=== PATIENT | male | born 1985 | race Caucasian/White ===

== ENCOUNTER 2016-10-02 09:26 | Emergency (ER) | payer OTHER ==
[~2016-10-02] VITALS: Ht 195.6 cm; Wt 120.5 kg
[2016-10-02 09:28] VITALS: BP 173/103; PULSE 64; RESP 19; TEMP 97.6; O2SAT 99
[2016-10-02] MEDS ORDERED: LISI10TA3 PO (09:49)
[2016-10-02] MEDS ORDERED: MORPHINE SULFATE 4 MG/ML INJ IV PUSH ONE (10:00)
[2016-10-02] MEDS ORDERED: ONDANSETRON HCL 4 MG/2 ML VIAL IV PUSH ONE (10:00)
[2016-10-02] MEDS ORDERED: KETOROLAC TROMETHAMINE 30 MG/ML (IVP) VIAL IV PUSH ONE (10:00)
[2016-10-02] MEDS ORDERED: SODIUM CHLOR 0.9% 1000 ML INJ 1,000 ML IV ONE (10:00)
[2016-10-02] MEDS ORDERED: MORPHINE SULFATE 8 MG/ML INJ ONE (10:27)
[2016-10-02 10:29] LABS: AUTOMATED NEUTROPHIL # 3.3 TH/MM3 (1.8-7.7); BASOPHIL # 0.1 TH/MM3 (0-0.2); EOSINOPHIL # 0.1 TH/MM3 (0-0.4); EOSINOPHIL % 2.1 % (0.0-4.0); HEMATOCRIT 43.8 % (39.0-51.0); HEMO FLAGS DIFF FINAL; LYMPH % 26.7 % (9.0-44.0); LYMPHOCYTE # 1.5 TH/MM3 (1.0-4.8); MEAN CELL VOLUME 83.9 FL (80.0-100.0); MEAN CORPUSCULAR HGB CONC 33.4 % (32.0-36.0); MONO % 11.1 % (0.0-8.0); NEUT % 59.1 % (16.0-70.0); PLATELET COUNT 201 TH/MM3 (150-450); RED BLOOD COUNT 5.23 MIL/MM3 (4.50-5.90); RED CELL DISTRIBUTION WIDTH 12.9 % (11.6-17.2); WHITE BLOOD COUNT 5.6 TH/MM3 (4.0-11.0)
--- NOTE | 2016-10-02 10:31 | PD ---
HPI Chief Complaint: Complaint Time Seen by Provider: 09:44 Travel History International Travel<30 days: No Contact w/Intl Traveler<30days: No Traveled to known affect area: No History of Present Illness HPI Patient is a 31 year old male who comes in complaining of left testicular pain that radiates up into his left flank. He says last night he felt like he could not urinate and the pain started this morning. He reports taking 800mg Ibuprofen prior to coming in, which has helped his pain. He has had some nausea , but no vomiting. He says he feels like he needs to urinate, but only dribbles come out each time. He denies any fever or chills. PFSH Past Medical History Heart Rhythm Problems: Yes (SVT) Cardiovascular Problems: Yes (HTN) Hypertension: Yes Tetanus Vaccination: < 5 Years Influenza Vaccination: Yes Past Surgical History Tonsillectomy: Yes Social History Alcohol Use: Yes Tobacco Use: No Substance Use: No Allergies-Medications (Allergen,Severity, Reaction): Coded Allergies: Percocet (Verified Allergy, Intermediate, ITCHING, 10/02/16) Reported Meds & Prescriptions Reported Meds & Active Scripts Active Reported Lisinopril 10 Mg Tab 10 Mg PO DAILY Review of Systems Except as stated in HPI: all other systems reviewed are Neg General / Constitutional: No: Fever, Chills HENT: No: Headaches, Lightheadedness Cardiovascular: No: Chest Pain or Discomfort Respiratory: No: Shortness of Breath Gastrointestinal: Positive: Nausea, Abdominal Pain, No: Vomiting Genitourinary: No: Dysuria, Hematuria, Flank Pain Skin: No Rash, No Change in Pigmentation Neurologic: No: Weakness, Dizziness Physical Exam Narrative GENERAL: Awake and alert, in no acute distress. SKIN: Focused skin assessment warm/dry. HEAD: Atraumatic. Normocephalic. EYES: Pupils equal and round. No scleral icterus. ENT: No nasal bleeding or discharge. Mucous membranes pink and moist. NECK: Trachea midline. No JVD. CARDIOVASCULAR: Regular rate and rhythm. No murmur appreciated. RESPIRATORY: No accessory muscle use. Clear to auscultation. Breath sounds equal bilaterally. GASTROINTESTINAL: Abdomen soft, non-tender, nondistended. Minimal left sided CVA tenderness. : Exam performed in the presence of a nurse. No testicular swelling or masses. Minimal tenderness along the epididymis. No lesions. MUSCULOSKELETAL: No obvious deformities. No clubbing. No cyanosis. No edema. NEUROLOGICAL: Awake and alert. No obvious cranial nerve deficits. Motor grossly within normal limits. Normal speech. PSYCHIATRIC: Appropriate mood and affect; insight and judgment normal. Data Data Last Documented VS Vital Signs Date Time Temp Pulse Resp B/P Pulse Ox O2 Delivery O2 Flow Rate FiO2 10/02/16 09:28 97.6 64 19 173/103 99 Room Air Orders Complete Blood Count With Diff (10/02/16 09:46) Basic Metabolic Panel (Bmp) (10/02/16 09:46) Ct Abd/Pel W/O Iv Contrast (10/02/16 ) Urinalysis - C+S If Indicated (10/02/16 09:46) Iv Access Insert/Monitor (10/02/16 09:46) Sodium Chlor 0.9% 1000 Ml Inj (Ns 1000 M (10/02/16 10:00) Ketorolac Inj (Toradol Inj) (10/02/16 10:00) Ondansetron Inj (Zofran Inj) (10/02/16 10:00) Morphine Inj (Morphine Inj) (10/02/16 10:00) Us Testicles W Doppler (10/02/16 ) Morphine Inj (Morphine Inj) (10/02/16 10:27) Labs Laboratory Tests Test 10/02/16 10/02/16 10:05 11:15 White Blood Count 5.6 TH/MM3 Red Blood Count 5.23 MIL/MM3 Hemoglobin 14.7 GM/DL Hematocrit 43.8 % Mean Corpuscular Volume 83.9 FL Mean Corpuscular Hemoglobin 28.0 PG Mean Corpuscular Hemoglobin 33.4 % Concent Red Cell Distribution Width 12.9 % Platelet Count 201 TH/MM3 Mean Platelet Volume 8.6 FL Neutrophils (%) (Auto) 59.1 % Lymphocytes (%) (Auto) 26.7 % Monocytes (%) (Auto) 11.1 % Eosinophils (%) (Auto) 2.1 % Basophils (%) (Auto) 1.0 % Neutrophils # (Auto) 3.3 TH/MM3 Lymphocytes # (Auto) 1.5 TH/MM3 Monocytes # (Auto) 0.6 TH/MM3 Eosinophils # (Auto) 0.1 TH/MM3 Basophils # (Auto) 0.1 TH/MM3 CBC Comment DIFF FINAL Differential Comment Sodium Level 141 MEQ/L Potassium Level 3.9 MEQ/L Chloride Level 107 MEQ/L Carbon Dioxide Level 25.7 MEQ/L Anion Gap 8 MEQ/L Blood Urea Nitrogen 15 MG/DL Creatinine 1.15 MG/DL Estimat Glomerular Filtration 74 ML/MIN Rate Random Glucose 104 MG/DL Calcium Level 9.2 MG/DL Urine Color YELLOW Urine Turbidity CLEAR Urine pH 6.5 Urine Specific [place] 1.023 Urine Protein TRACE mg/dL Urine Glucose (UA) NEG mg/dL Urine Ketones NEG mg/dL Urine Occult Blood MOD Urine Nitrite NEG Urine Bilirubin NEG Urine Urobilinogen LESS THAN 2.0 MG/DL Urine Leukocyte Esterase NEG Urine RBC 132 /hpf Urine WBC 1 /hpf Urine Squamous Epithelial <1 /hpf Cells Urine Bacteria OCC /hpf Urine Mucus FEW /lpf Microscopic Urinalysis Comment CULT NOT INDICATED MDM Medical Decision Making Medical Screen Exam Complete: Yes Emergency Medical Condition: Yes Differential Diagnosis UTI versus orchitis versus epididymitis versus renal stone Narrative Course Patient is a 31 year old male who comes in complaining of testicular pain radiating to his left flank. Exam shows minimal left CVA tenderness. IV established, labs sent. Labs show no acute abnormalities, Creatinine was within normal limits. Urinalysis shows occult blood. CT abd/pelvis performed shows 4mm stone at the UVJ with mild hydronephrosis. US of the testicles shows no acute abnormalities. Patient feels better after IVF, morphine and Toradol. Will be discharged with prescriptions for Lortab, Flomax. Advised to follow up with urology. Advised to return to the ED as needed for any worsening symptoms. Diagnosis Primary Impression: Renal stone Patient Instructions: General Instructions, Kidney Stones (ED) Additional Instructions: Follow up with urology. Drink plenty of fluids. Take pain medicine as needed. Return to the ED as needed for any worsening symptoms. Scripts Hydrocodone-Acetaminophen (Lortab)5-325 Mg Tab1 Tab PO Q6H PRN (PAIN) #12 TAB Ref 0 Prov:Tammi Mondragon MD 10/02/16 Tamsulosin (Flomax)0.4 Mg Cap0.4 Mg PO HS #7 CAP Ref 0 Prov:Tammi Mondragon MD 10/02/16 Disposition: 01 DISCHARGE HOME Condition: Stable Tammi Mondragon MD Oct 02, 2016 10:31
[2016-10-02 10:42] LABS: BICARBONATE 25.7 MEQ/L (21.0-32.0); POTASSIUM 3.9 MEQ/L (3.5-5.1)
[2016-10-02 12:00] LABS: BACTERIA, URINE OCC /hpf; BLOOD, URINE MOD (NEG); COMMENT (UR) CULT NOT INDICATED; CULTURE IF INDICATED CULT NOT INDICATED; GLUCOSE,URINE NEG (NEG); KETONE, URINE NEG (NEG); MUCUS URINE FEW /lpf (OCC); NITRITE,URINE NEG (NEG); PH, URINE 6.5 (5.0-8.5); SQUAMOUS EPITHELIAL CELL URINE <1 /hpf (0-5); URINE COLOR YELLOW (YELLW/STRAW)
--- NOTE | 2016-10-02 12:06 | RADRPT ---
EXAM DATE/TIME: 10/02/2016 11:17 [facility] COMPARISON: No previous studies available for comparison. INDICATIONS : Difficulty urinating, testicular pain that radiates to the left flank. ORAL CONTRAST: No oral contrast ingested. RADIATION DOSE: 8.55 CTDIvol (mGy) MEDICAL HISTORY : Renal calculi. SURGICAL HISTORY : None. ENCOUNTER: Initial ACUITY: 1 day PAIN SCALE: 8/10 LOCATION: Left flank TECHNIQUE: Volumetric scanning of the abdomen and pelvis was performed. Using automated exposure control and ad justment of the mA and/or kV according to patient size, radiation dose was kept as low as reasonably achievable to obtain optimal diagnostic quality images. DICOM format image data is available electro nically for review and comparison. FINDINGS: CT Abdomen: There are 3 separate tiny 2 mm stones in the right kidney without any hydronephrosis. The re are 3 separate stones in the left kidney the largest measures 6 mm and there is slight hydronephro sis due to an approximate 4 mm left UVJ stone. The liver, spleen, pancreas, adrenals are unremarkable . There is no evidence for any appreciable pathological adenopathy, free fluid, or bowel obstruction. CT pelvis: There is no evidence for mass, abscess formation, or any significant adenopathy within the pelvis. There is probable chronic spondylolysis bilaterally at L5 level not adequately characterized . CONCLUSION: 1. Slight hydronephrosis in the left kidney due to an approximate 4 mm left UVJ stone with additional stones in both kidneys. 2. Probable chronic spondylolysis L5. KGloria Reed MD on October 02, 2016 at 11:58 Board Certified Radiologist. This report was verified electronically.
--- NOTE | 2016-10-02 12:09 | RADRPT ---
EXAM DATE/TIME: 10/02/2016 10:28 [facility] COMPARISON: No previous studies available for comparison. INDICATIONS : Pain in left testicle with trouble urinating and back pain. MEDICAL HISTORY : Hypertension. SURGICAL HISTORY : Tonsillectomy. ENCOUNTER: Initial ACUITY: 1 day PAIN SCORE: 4/10 LOCATION: Bilateral scrotum. MEASUREMENTS: RIGHT TESTICLE: 5.1 x 3.1 x 2.0cm LEFT TESTICLE: 4.1 x 3.1 x 1.9 cmcm FINDINGS: RIGHT TESTICLE: Homogeneous echotexture without intra or extratesticular mass. Blood flow is symmetric and within no rmal limits. No hydrocele or varicocele. There is a 0.5 x 0.5 x 0.6 cm epididymal cyst. The epididym is otherwise unremarkable appearance. LEFT TESTICLE: Homogeneous echotexture without intra or extratesticular mass. Blood flow is symmetric and within no rmal limits. No hydrocele or varicocele. Epididymis is within normal limits. SCROTUM: Within normal limits. CONCLUSION: 1. No intratesticular mass identified. 2. Small epididymal cyst on the right. 3. Blood flow to the testicles is symmetric and intact. Ant Hernandez MD on October 02, 2016 at 12:06 Board Certified Radiologist. This report was verified electronically.
[2016-10-02] MEDS ORDERED: TAMS5CAP PO (12:37)
[2016-10-02] MEDS ORDERED: HYDR-3533 PO (12:37)
[2016-10-02 13:07] VITALS: RESP 20
== END 2016-10-02 13:09 | disposition home or self-care (01) ==
LOC: NEPD 09:26
DX: N13.2 Hydronephrosis with renal and ureteral calculous obstruction (principal); I10 Essential (primary) hypertension
CPT/HCPCS: 74176; 76870; 80048; 81001; 85025; 93975; 96361; 96374; 96375; 99285; J1885; J2270; J2405; J7030